=== PATIENT | female | born 1955 | race African-American/Black ===

== ENCOUNTER 2017-07-27 09:34 | Outpatient (CLI) | payer BC | END 2017-07-27 09:35 | disposition home or self-care (01) | LOC: BICULT 09:34 | PROVIDERS: ATTEND Internal Medicine | DX: I82.402 Acute embolism and thrombosis of unspecified deep veins of left lower extremity (principal) ==

== ENCOUNTER 2017-11-03 16:00 | Outpatient (CLI) | payer BC | END 2017-11-03 16:01 | disposition home or self-care (01) | LOC: BICMAMMO 16:00 | PROVIDERS: ATTEND Internal Medicine | DX: Z12.31 Encounter for screening mammogram for malignant neoplasm of breast (principal) | CPT/HCPCS: 77063; 77067 ==

== ENCOUNTER 2018-11-08 14:53 | Outpatient (CLI) | payer BC ==
--- NOTE | 2018-11-12 13:26 | MMO ---
Bilateral MAMMO Bilat Screen [facility]. CLINICAL HISTORY: Patient is 63 years old and is seen for screening. The patient has no family history of breast cancer. The patient has no personal history of cancer. VIEWS: The views performed were: bilateral craniocaudal with tomosynthesis and bilateral mediolateral oblique with tomosynthesis. FILMS COMPARED: The present examination has been compared to prior imaging studies performed at [facility] on 09/24/1997, 06/03/1999, 07/18/2000, 07/19/2001, 07/25/2002, 08/01/2003, 08/12/2004, 08/19/2005, 08/17/2006, 09/18/2007, 09/19/2008, 09/21/2009, 10/01/2010, 10/07/2011, 10/12/2012, 10/18/2013, 10/24/2014, 10/30/2015, 10/31/2016 and 11/03/2017. MAMMOGRAM FINDINGS: There are stable benign appearing calcifications seen in both breasts. There are no suspicious masses, suspicious calcifications, or new areas of architectural distortion. IMPRESSION: THERE IS NO MAMMOGRAPHIC EVIDENCE OF MALIGNANCY. A ROUTINE FOLLOW-UP MAMMOGRAM IN 1 YEAR IS RECOMMENDED. THE RESULTS OF THIS EXAM WERE SENT TO THE PATIENT. ACR BI-RADS Category 2 - Benign finding MAMMOGRAPHY NOTE: 1. A negative mammogram report should not delay a biopsy if a dominant of clinically suspicious mass is present. 2. Approximately 10% to 15% of breast cancers are not detected by mammography. 3. Adenosis and dense breasts may obscure an underlying neoplasm.
== END 2018-11-08 14:54 | disposition home or self-care (01) ==
LOC: BICMAMMO 14:53
PROVIDERS: ATTEND Obstetrics & Gynecology
DX: Z12.31 Encounter for screening mammogram for malignant neoplasm of breast (principal)
CPT/HCPCS: 77063; 77067

== ENCOUNTER 2019-04-02 08:04 | Outpatient (CLI) | payer BC ==
--- NOTE | 2019-04-02 09:29 | CT ---
CT ABDOMEN AND PELVIS WITH AND WITHOUT IV CONTRAST: 04/02/19 Axial tomograms obtained through the abdomen and pelvis without IV enhancement. This is followed by p ostcontrast images performed in portal venous phase and delayed venous phase. INDICATIONS: Gross hematuria. FINDINGS: Review of the noncontrast study show no evidence of urinary tract calculus. There is no hydronephrosi s. Urinary bladder is contracted and not adequately evaluated. On the postcontrast images, both kidneys show symmetric enhancement. No evidence of renal mass or cys tic lesion seen. On delayed sequence, there is contrast secretion in the collecting structures. Colle cting structures appear unremarkable. Bladder is minimally distended on the delayed sequence and not well evaluated. Liver, spleen, and pancreas unremarkable. Adrenal glands appear normal. Small bowel loops unremarkable. Post cholecystectomy changes are noted. Appendix unremarkable. Colon unremarkable. Aorta normal caliber. Patient is post hysterectomy. Osseous structures unremarkable. IMPRESSION: Unremarkable CT abdomen and pelvis. Specifically, the urinary tract appears unremarkable; however, th e bladder is poorly evaluated due to nondistention. Bladder lesions cannot be excluded on this exam. POS: [facility]
== END 2019-04-02 08:05 | disposition home or self-care (01) ==
LOC: BICCT 08:04
PROVIDERS: ATTEND Urology
DX: R31.0 Gross hematuria (principal)
CPT/HCPCS: 74178; 82565

== ENCOUNTER 2019-12-12 07:56 | Outpatient (CLI) | payer BC ==
--- NOTE | 2019-12-12 10:34 | MMO ---
Bilateral MAMMO Bilat Screen [facility]. CLINICAL HISTORY: Patient is 64 years old and is seen for screening. The patient has no family history of breast cancer. The patient has no personal history of cancer. VIEWS: The views performed were: bilateral craniocaudal with tomosynthesis and bilateral mediolateral oblique with tomosynthesis. FILMS COMPARED: The present examination has been compared to prior imaging studies performed at [facility] on 11/03/2017, 11/08/2018 and 12/11/2019. This study has been interpreted with the assistance of computer-aided detection. MAMMOGRAM FINDINGS: There are scattered fibroglandular densities. There are no suspicious masses, suspicious calcifications, or new areas of architectural distortion. IMPRESSION: THERE IS NO MAMMOGRAPHIC EVIDENCE OF MALIGNANCY. A ROUTINE FOLLOW-UP MAMMOGRAM IN 1 YEAR IS RECOMMENDED. THE RESULTS OF THIS EXAM WERE SENT TO THE PATIENT. ACR BI-RADS Category 1 - Negative MAMMOGRAPHY NOTE: 1. A negative mammogram report should not delay a biopsy if a dominant of clinically suspicious mass is present. 2. Approximately 10% to 15% of breast cancers are not detected by mammography. 3. Adenosis and dense breasts may obscure an underlying neoplasm. Reported by: JACOB SAN MD Electonically Signed: [id number]
== END 2019-12-12 07:57 | disposition home or self-care (01) ==
LOC: BICMAMMO 07:56
PROVIDERS: ATTEND Internal Medicine
DX: Z12.31 Encounter for screening mammogram for malignant neoplasm of breast (principal)
CPT/HCPCS: 77063; 77067

== ENCOUNTER 2020-09-30 14:35 | Outpatient (CLI) | payer BC ==
--- NOTE | 2020-09-30 15:00 | ULT ---
US Soft Tissue Other History: Knee pain Comparison: None. Findings: Real-time grayscale and color evaluation of the popliteal fossa was performed. No abnormal mass. No fluid collection. Popliteal artery and vein are patent. Impression: No evidence for a popliteal cyst. Patent popliteal artery and vein.
== END 2020-09-30 14:36 | disposition home or self-care (01) ==
LOC: BICULT 14:35
PROVIDERS: ATTEND Family Medicine
DX: M25.561 Pain in right knee (principal)
CPT/HCPCS: 76999

== ENCOUNTER 2020-12-14 08:04 | Outpatient (CLI) | payer BC | END 2020-12-14 08:05 | disposition home or self-care (01) | LOC: BICMAMMO 08:04 | PROVIDERS: ATTEND Family Medicine | DX: Z12.31 Encounter for screening mammogram for malignant neoplasm of breast (principal) | CPT/HCPCS: 77063; 77067 ==

== ENCOUNTER 2021-12-16 10:35 | Outpatient (CLI) | payer MEDICARE, BC | END 2021-12-16 10:36 | disposition home or self-care (01) | LOC: BICMAMMO 10:35 | PROVIDERS: ATTEND Internal Medicine | DX: Z12.31 Encounter for screening mammogram for malignant neoplasm of breast (principal) | CPT/HCPCS: 77063; 77067 ==

== ENCOUNTER 2022-12-21 08:43 | Outpatient (CLI) | payer MEDICARE, BC | END 2022-12-21 08:44 | disposition home or self-care (01) | LOC: BICMAMMO 08:43 | PROVIDERS: ATTEND Internal Medicine | DX: Z12.31 Encounter for screening mammogram for malignant neoplasm of breast (principal) | CPT/HCPCS: 77063; 77067 ==

== ENCOUNTER 2025-05-01 11:37 | Outpatient (CLI) | payer MEDICARE, BC | END 2025-05-01 11:38 | disposition home or self-care (01) | LOC: BICMAMMO 11:37 | PROVIDERS: ATTEND Internal Medicine | DX: M85.89 Other specified disorders of bone density and structure, multiple sites (principal) | CPT/HCPCS: 77080 ==